=== PATIENT | female | born 1980 | race Two or more races ===

== ENCOUNTER 2024-11-24 19:15 | Emergency (ER) | payer MEDICAID, SELFPAY ==
[2024-11-24 19:18] VITALS: BMI 28.1
--- NOTE | 2024-11-24 19:30 | EKG_ITS ---
[facility] Test Date: 2024-11-24 Pat Name: ИВАН CHOU Department: Room: - Gender: Female Head Pumper: : 1980 Requested By: Amna Kee Order Number: [id number] Reading MD: Amna Kee Measurements Intervals [place] Rate: 80 P: 31 MD: 148 QRS: -16 QRSD: 78 T: 34 QT: 368 QTc: 426 Interpretive Statements SINUS RHYTHM LOW QRS VOLTAGE IN PRECORDIAL LEADS [QRS DEFLECTION < 1.0 mV IN CHEST LEADS] PATTERN CONSISTENT WITH PULMONARY DISEASE Compared to ECG 03/22/2022 01:01:20 Low QRS voltage now present /store/S0/[id number]
[2024-11-24 19:40] VITALS: BP 157/105; BP 173/94; PULSE 87; RESP 18; TEMP 37.2; O2SAT 99
[2024-11-24 20:18] LABS: Basophils # (Auto) 0.0 Thou/mm3 (0.0-0.2); Basophils % (Auto) 1 % (0-2.5); Eosinophils # (Auto) 0.3 Thou/mm3 (0.0-0.5); Eosinophils % (Auto) 4 % (0-10); Hematocrit 28.9 % (36.0-46.0); Immature Granulocytes Auto 0.02 Thou/mm3 (0.00-0.00); Lymphocytes # (Auto) 2.3 Thou/mm3 (1.0-4.8); Lymphocytes % (Auto) 28 % (10-50); Mean Corpuscular HGB Conc 29.4 g/dl (31.0-37.0); Mean Corpuscular Hemoglobin 20.2 pg (25.0-35.0); Mean Corpuscular Volume 69 fL (80-100); Monocytes # (Auto) 0.7 Thou/mm3 (0.0-0.8); Monocytes % (Auto) 9 % (0-12); Neutrophils # (Auto) 4.7 Thou/mm3 (1.8-7.7); Neutrophils % (Auto) 59 % (37-80); Nucleated Red Blood Cell # 0.00 Thou/mm3 (0.00-0.00); Nucleated Red Blood Cell % 0 /100 WBC (0); Platelet Count 503 Thou/mm3 (140-440); RDW Standard Deviation 51.6 fL (36.4-46.3); Red Blood Count 4.20 Miln/mm3 (4.00-5.20); White Blood Count 8.1 Thou/mm3 (3.6-11.0)
[2024-11-24 20:19] LABS: Hemoglobin 8.5 g/dL (12.0-16.0)
[2024-11-24 20:44] LABS: Alanine Aminotransferase 31 U/L (10-49); Albumin, Serum 4.5 gm/dL (3.5-5.0); Albumin/Globulin Ratio 1.4 (1.2-2.2); Alkaline Phosphatase 73 U/L (46-116); Anion Gap 10 (7-16); Aspartate Amino Transferase 32 U/L (0-34); BUN/Creatinine Ratio 13 Ratio (12-20); Bilirubin,Total 0.2 mg/dL (0.3-1.2); Blood Urea Nitrogen 9 mg/dL (9-23); Calcium 9.9 mg/dL (8.3-10.6); Calcium (Corrected) 9.9 mg/dL (8.5-10.1); Carbon Dioxide 25.1 mMol/L (20.0-31.0); Chloride 105 mMol/L (98-107); Creatinine (Component) 0.7 mg/dL (0.6-1.3); Estimated Creatinine Clearance 94.9 mL/min (>60); Globulin 3.3 gm/dL (2.3-3.5); Glucose 110 mg/dL (74-106); Osmolality,Calculated 279 (275-295); Potassium 4.5 mMol/L (3.4-5.1); Sodium 140 mMol/L (136-145); Thyroid Stimulating Hormone 2.56 uIU/mL (0.55-4.78); Total Protein 7.8 gm/dL (5.7-8.2); Troponin I < 0.002 ng/mL (0.0-0.045); eGFR > 60 See Note
[2024-11-24 20:45] LABS: B-Type Natriuretic Peptide < 20 pg/mL (0-100)
--- NOTE | 2024-11-24 21:05 | XR_ITS ---
Examination: PA chest single view TECHNIQUE: Upright PA chest single view Date and time: November 22, 2024 2107 hours INDICATIONS: Chest pain beginning 2 weeks ago. FINDINGS: Normal heart size. Lungs are clear. The osseous structures are intact. IMPRESSION: No active disease.
--- NOTE | 2024-11-24 21:37 | PD.EDCHEST ---
ED Chest Pain RME/HPI General Chief Complaint: Chest Pain Stated Complaint: CHEST PAIN Time Seen by Provider: 11/24/24 19:21 Source: patient Arrival date/time: 11/24/24 19:15 This is a case of 44-year-old female with no medical history came into the emergency room due to chest pain on and off for 2 weeks associated with palpitation and shortness of breath patient see primary care physician still awaiting to be seen by the specialist persistence of the symptoms this patient decided to sought consult here in the emergency room Limitations: no limitations Related Data Previous Rx's ?Medication ?Instructions ?Recorded prednisone 10 mg tablet 10 mg PO BID #6 tabs 03/22/22 ferrous sulfate 325 mg (65 mg 325 mg PO BID #60 tabs 11/24/24 iron) tablet Allergies Allergy/AdvReac Type Severity Reaction Status Date / Time No Known Allergies Allergy Verified 11/24/24 19:25 Review of Systems Review of Systems Systems Reviewed: All systems reviewed, normal except as documented Constitutional Constitutional: Reports system reviewed and no additional complaints, except as documented and Reports as per HPI Cardiovascular Cardiovascular: Reports system reviewed and no additional complaints, except as documented, Reports as per HPI, Denies acrocyanosis, Reports chest pain, Denies chest pain at rest, Denies chest pain with activity, Denies claudication, Reports dyspnea, Denies dyspnea on exertion, Denies edema, Denies irregular heart rhythm, Denies leg edema, Denies leg ulcers, Denies lightheadedness, Denies orthopnea, Denies palpitations, Denies paroxysmal nocturnal dyspnea, Denies pedal edema, Denies radiating jaw, neck or arm pain, Reports rapid heart rate, Denies slow heart rate and Denies syncope Respiratory Respiratory: Reports system reviewed and no additional complaints, except as documented, Reports as per HPI, Reports dyspnea and Denies dyspnea on exertion Gastrointestinal Gastrointestinal: Reports system reviewed and no additional complaints, except as documented Musculoskeletal Musculoskeletal: Reports system reviewed and no additional complaints, except as documented and Reports as per HPI Neurologic Neurologic: Reports system reviewed and no additional complaints, except as documented, Reports as per HPI and Denies syncope Endocrine Endocrine: Denies palpitations Past Medical History Social History SMOKING STATUS: Never smoker ED Exam General Limitations: Present no limitations General appearance: Present alert, in no apparent distress and other (Awake alert oriented not in distress nontoxic looking well-hydrated well-nourished) Head Head exam: Present atraumatic, normocephalic and normal inspection Eye Eye exam: Present normal appearance, PERRL and EOMI ENT ENT exam: Present normal exam, normal oropharynx and mucous membranes moist Neck Neck exam: Present normal inspection, full ROM and trachea midline Chest Chest inspection: Present normal inspection and symmetric chest wall rise; Absent tenderness Respiratory Respiratory exam: Present normal lung sounds bilaterally; Absent respiratory distress, wheezes, stridor, accessory muscle use or prolonged expiratory phase Cardiovascular Cardiovascular exam: Present regular rate, normal rhythm and normal heart sounds; Absent bradycardia, tachycardia, irregular rhythm, systolic murmur or diastolic murmur Abdominal Exam Abdominal exam: Present soft; Absent distention, tenderness, guarding, rebound, rigidity, normal bowel sounds, diminished bowel sounds, hyperactive bowel sounds, hypoactive bowel sounds or organomegaly Extremities Exam Extremities exam: Present normal inspection and full ROM Back Exam Back exam: Present normal inspection and full ROM Neurological Exam Neurological exam: Present alert, oriented X3, CN II-XII intact, normal gait and reflexes normal; Absent motor sensory deficit Psychiatric Psychiatric exam: Present normal affect and normal mood Skin Skin exam: Present warm, dry, intact and normal color Course Quality Measures none Orders Category Date Time Status EKG (ED ONLY) *Do not use* NOW Care 11/24/24 19:30 Completed EKG (ED Only) Stat Exams 11/24/24 19:30 Draft XR chest 1V portable Stat Exams 11/24/24 21:05 Completed BNP [B-Type Natriuretic Peptide] Stat Lab 11/24/24 20:10 Completed CBC Stat Lab 11/24/24 20:10 Completed Comprehensive Metabolic Panel Stat Lab 11/24/24 20:10 Completed HCG Qualitative,Urine Stat Lab 11/24/24 19:50 Ordered TSH [Thyroid Stimulating Hormone] Stat Lab 11/24/24 20:10 Completed Troponin I Stat Lab 11/24/24 20:10 Completed Urinalysis Stat Lab 11/24/24 19:50 Ordered Vital Signs Vital signs: Vital Signs Temperature 98.9 F 11/24/24 19:40 Pulse Rate 87 11/24/24 19:40 Respiratory Rate 18 11/24/24 19:40 Blood Pressure 157/105 H 11/24/24 19:40 Pulse Oximetry (%) 99 11/24/24 19:40 Oxygen Delivery Method Room Air 11/24/24 19:40 Patient is afebrile not tachycardic not tachypneic BP initially was 157/105 rechecked and noted to be 120/80 not hypoxic oxygen saturation is 99% in room air Chest Pain MDM Narrative [facility] Narrative:: This is a case of 44-year-old female with no medical history came into the emergency room due to chest pain on and off for 2 weeks associated with palpitation and shortness of breath patient see primary care physician still awaiting to be seen by the specialist persistence of the symptoms this patient decided to sought consult here in the emergency room physical examination patient is awake alert oriented not in distress nontoxic looking vital signs stable BP stable not tachycardic not tachypneic afebrile and nonhypoxic lung sound is clear no crackles no rales no retraction no stridor heart normal rate regular rhythm no murmur no edema the rest of the physical examination neurological exam is normal and unremarkable vital signs stable blood test showed no leukocytosis with anemia of hemoglobin 8.5 patient was prescribed with iron to be taken for twice a day for 1 month and follow-up with PCP to be referred to ekg monitor tech platelet is normal no electrolyte imbalance kidney and liver function is normal TSH is normal BNP is normal troponin is negative EKG showed sinus rhythm no ST or T wave abnormalities chest x-ray is also normal at this point patient symptoms or chest pain is unknown patient needs to see a traffic engineering technician for further evaluation and treatment of chest pain for possible echocardiogram stress test and Holter monitor at the time of exam I do not suspect myocardial infarction or pulmonary embolism patient was advised for any recurrence persistent worsening symptoms or any emergent concerns she will return to the emergency room immediately or call 911 Patient was discharged with comfortable condition walking with stable gait. Patient verbalized no further complains explained diagnosis and answered patient question. Patient is comfortable with the proposed management plan including the need to follow up with his/her primary care physician and any specialist if applicable Discussed patient for any urgent condition or worsening sx, He/She needed to go to emergency room immediately or call 911. Patient acknowledge the responsibility to follow up as instructed and to monitor her/his symptoms. For any persistence of the symptoms for more than 3-5 days return precaution advised. Discussed the result of the test and was given printed discharge instruction Patient data External records reviewed:: [facility] previous records Clinical information provided by:: patient Social determinants that could affect healthcare access:: none Patient has the following chronic illnesses:: None How is presenting disease/condition affected by chronic disease/condition?: no chronic disease Evaluation data The following diagnostics were reviewed and interpreted by me:: lab results and radiology exam(s) Lab and/or radiology exams considered but not ordered:: Reviewed Interpretation Summary: Reviewed Medications / Prescriptions Medications or Prescriptions considered but not ordered:: Given Medication administrations:: Given Consultations Consultation(s) initiated? (list below): No Diagnosis Chest Pain Differential Diagnosis: atypical chest pain and other (Chest pain of unknown etiology) Most likely diagnosis given after review of the tests above:: Chest pain of unknown etiology Admission Indicated Admission indicated?: not indicated Explain why admission is indicated or not indicated:: Not indicated Admission Request Was there a request for admission?: No Admission Attestation Admission request attestation: Not indicated Disposition Plan Disposition Plan: Discharge Discharge Attestation Discharge Attestation: The patient and all family members were given an opportunity to ask questions and understood the discharge instructions. Discharge instructions specifically effects, indications for sooner follow up or return to the emergency department, and the expected course of current diagnosis. Patient condition: Stable Discharge Plan Plan Patient Disposition: HOME (Self Care) Patient condition on transfer: Stable Prescriptions/Referrals Prescriptions/Med Rec: New ferrous sulfate 325 mg (65 mg iron) tablet 325 mg PO BID Qty: 60 0RF No Action prednisone 10 mg tablet 10 mg PO BID Qty: 6 0RF Referrals: Sakina Smith MD [Primary Care Provider] - In 1 week Problem List Clinical Impression: Chest pain of unknown etiology, Palpitation, Anemia Patient/Caregiver Discharge Instructions Education Materials: Anemia, ED Chest Pain, Uncertain Cause, ED Palpitations Additional Instructions: Follow-up with your primary care physician in 2 days for reevaluation and to be referred to traffic engineering technician for further evaluation and treatment of chest pain for possible echocardiogram stress test and Holter monitor recurrence persistent worsening symptoms or any emergent concern call 911 or go to the nearest emergency room follow-up with your primary care physician to be referred to ekg monitor tech for further evaluation and treatment of your anemia take your medication as directed Print Language: Maori Stand Alone Forms: Breanna Award Info., Patient Portal Info Letter PA/JOHNNY Supervising Physician PA/JOHNNY Supervising Physician: Dr cohn
[2024-11-24 21:48] VITALS: BP 158/94; PULSE 85; RESP 16; TEMP 36.9; O2SAT 98
== END 2024-11-24 21:52 | disposition home or self-care (01) ==
PROVIDERS: Nurse Practitioner Family; Emergency Provider Family Medicine; PCP Obstetrics & Gynecology
DX: R07.9 Chest pain, unspecified (principal); R00.2 Palpitations; D64.9 Anemia, unspecified
CPT/HCPCS: 36415; 71045; 80053; 81001; 81025; 83880; 84443; 84484; 85025; 93005; 99283

== ENCOUNTER 2024-12-11 07:44 | Outpatient (RCR) | payer MEDICAID, SELFPAY | END 2025-01-07 23:59 | disposition home or self-care (01) | LOC: SCTC 07:44 | PROVIDERS: PCP Obstetrics & Gynecology; Referring Provider Obstetrics & Gynecology; Visit Provider Nurse Practitioner Family | DX: D50.9 Iron deficiency anemia, unspecified (principal); N92.0 Excessive and frequent menstruation with regular cycle | CPT/HCPCS: 99213; G0463 ==

== ENCOUNTER 2025-01-13 11:20 | Outpatient (RCR) | payer MEDICAID, SELFPAY | END 2025-02-07 23:59 | disposition home or self-care (01) | LOC: SCTC 11:20 | PROVIDERS: PCP Obstetrics & Gynecology; Referring Provider Obstetrics & Gynecology; Visit Provider Nurse Practitioner Family | DX: D50.9 Iron deficiency anemia, unspecified (principal); N92.0 Excessive and frequent menstruation with regular cycle | CPT/HCPCS: 99212; G0463 ==

== ENCOUNTER 2025-02-17 08:56 | Outpatient (RCR) | payer MEDICAID, SELFPAY ==
[2025-02-11 15:12] LABS: Hematocrit 25.4 % (36.0-46.0)
[2025-02-11 15:13] LABS: Hemoglobin 7.6 g/dL (12.0-16.0)
== END 2025-03-09 23:59 | disposition home or self-care (01) ==
LOC: SCTC 08:56
PROVIDERS: PCP Obstetrics & Gynecology; Referring Provider Obstetrics & Gynecology; Visit Provider Nurse Practitioner Family
DX: D50.9 Iron deficiency anemia, unspecified (principal); N92.0 Excessive and frequent menstruation with regular cycle
CPT/HCPCS: 36430; 85014; 85018; 86850; 86900; 86901; 86923; 96365; 96375; A4216; J1756; J2919; J3490; J7040; P9016

== ENCOUNTER 2025-03-25 13:22 | Outpatient (RCR) | payer MEDICAID, SELFPAY | END 2025-04-09 23:59 | disposition home or self-care (01) | LOC: SCTC 13:22 | PROVIDERS: PCP Obstetrics & Gynecology; Referring Provider Obstetrics & Gynecology; Visit Provider Nurse Practitioner Family | DX: D50.9 Iron deficiency anemia, unspecified (principal); N92.0 Excessive and frequent menstruation with regular cycle | CPT/HCPCS: 96365; 96375; J1756; J2919; J3490; J7040 ==